=== PATIENT | male | born 1995 | race Caucasian/White ===

== ENCOUNTER 2021-03-02 20:01 | Emergency (ER) | payer SELFPAY ==
[~2021-03-02] VITALS: Ht 172.7 cm; Wt 54.4 kg
[2021-03-02 20:47] LABS: Anion Gap 17 mmol/L (6-16); Blood Urea Nitrogen 6 mg/dL (8-24); Bun/Creatinine Ratio 6.4 (12.0-20.0); CO2, Blood 18 mmol/L (21-32); Calcium, Blood 9.3 mg/dL (8.5-10.1); Chloride, Blood 100 mmol/L (98-108); Creatinine, Blood 0.94 mg/dL (0.60-1.20); Glomerular Filtration Rate >60 (60-); Glucose, Blood 110 mg/dL (70-99); Potassium, Blood 3.1 mmol/L (3.5-5.5); Sodium, Blood 135 mmol/L (136-145)
== END 2021-03-02 20:58 | disposition home or self-care (01) ==
LOC: ER 20:01
PROVIDERS: Emergency Medicine
DX: R56.9 Unspecified convulsions (principal); F15.90 Other stimulant use, unspecified, uncomplicated; M62.422 Contracture of muscle, left upper arm; M62.421 Contracture of muscle, right upper arm; F17.200 Nicotine dependence, unspecified, uncomplicated
CPT/HCPCS: 80048; 93005; 93010; 99285-25

== ENCOUNTER 2021-03-02 23:13 | Emergency (ER) | payer SELFPAY ==
[~2021-03-02] VITALS: Ht 172.7 cm; Wt 54.4 kg
== END 2021-03-03 00:40 | disposition home or self-care (01) ==
LOC: ER 23:13
DX: R07.81 Pleurodynia (principal); E87.6 Hypokalemia; F17.200 Nicotine dependence, unspecified, uncomplicated
CPT/HCPCS: 71100; 96372; 99283-25; A9270; J1885

== ENCOUNTER 2021-03-03 17:40 | Inpatient (IN) | payer SELFPAY ==
[~2021-03-03] VITALS: Ht 172.7 cm; Wt 54.4 kg
[2021-03-03 19:04] LABS: BASOPHILS ABSOLUTE AUTO 0.06 K/mm3 (0.00-0.23); BASOPHILS PERCENT AUTO 1 % (0-2); EOSINOPHILS ABSOLUTE AUTO 0.04 K/mm3 (0.00-0.68); EOSINOPHILS PERCENT AUTO 1 % (0-6); Hemoglobin 15.8 g/dL (13.5-17.5); IMMATURE GRAN ABSOLUTE AUTO 0.01 K/mm3 (0.00-0.10); IMMATURE GRAN PERCENT AUTO 0 % (0-1); LYMPHOCYTES ABSOLUTE AUTO 2.29 K/mm3 (0.84-5.20); LYMPHOCYTES PERCENT AUTO 27 % (21-46); MONOCYTES ABSOLUTE AUTO 0.82 K/mm3 (0.16-1.47); MONOCYTES PERCENT AUTO 10 % (4-13); Mean Corpuscular HGB 30.6 pg (26.0-34.0); Mean Corpuscular HGB Conc 35.1 g/dL (31.5-36.5); Mean Corpuscular Volume 87 fL (80-100); NEUTROPHILS ABSOLUTE AUTO 5.31 K/mm3 (1.96-9.15); NEUTROPHILS PERCENT AUTO 62 % (41-73); Platelet Count 330 K/mm3 (150-400); RDW Coefficient Variation 13.1 % (11.7-14.2); RDW Standard Deviation 41.5 fL (35.1-46.3); Red Blood Cell Count 5.16 M/mm3 (4.30-5.90); White Blood Cell Count 8.53 K/mm3 (4.00-11.30)
[2021-03-03 19:25] LABS: Alanine Aminotransfer (ALT/SGP 27 U/L (12-78); Albumin, Blood 4.3 g/dL (3.4-5.0); Albumin/Globulin Ratio 1.2 (0.8-1.8); Alk Phos 61 U/L (50-136); Anion Gap 8 mmol/L (6-16); Aspartate Aminotrans (AST/SGOT 32 U/L (12-37); Bilirubin, Total 2.7 mg/dL (0.1-1.0); Blood Urea Nitrogen 20 mg/dL (8-24); Bun/Creatinine Ratio 18.2 (12.0-20.0); CO2, Blood 22 mmol/L (21-32); Chloride, Blood 107 mmol/L (98-108); Ethanol (Alcohol), Blood, Med <3 mg/dL; Free Thyroxine 1.69 ng/dL (0.70-1.60); Globulin, Blood 3.6 g/dL (2.2-4.0); Glomerular Filtration Rate >60 (60-); Glucose, Blood 118 mg/dL (70-99); Potassium, Blood 3.6 mmol/L (3.5-5.5); Salicylate 2.7 mg/dL (2.8-20.0); Sodium, Blood 137 mmol/L (136-145); Total Protein, Blood 7.9 g/dL (6.4-8.2)
[2021-03-03 19:26] LABS: Acetaminophen, Random <2.0 ug/mL (10.0-30.0)
[2021-03-03 20:08] LABS: SARS-Cov-2 (COVID-19) PCR, MMC POSITIVE (NEGATIVE)
[2021-03-03 20:13] LABS: U Amphetamine Screen DETECTED; U Barbituate Screen Not Detected; U Benzodiazapine Screen Not Detected; U Buprenorphine Screen Not Detected; U Cannabinoids Screen DETECTED; U Cocaine Screen Not Detected; U Methadone Screen Not Detected; U Methamphetamine Screen DETECTED; U Opiates Screen Not Detected; U Oxycodone Screen Not Detected; U Phencyclidine Screen Not Detected; U Propoxyphene Screen Not Detected
[2021-03-04 05:08] LABS: BASOPHILS ABSOLUTE AUTO 0.06 K/mm3 (0.00-0.23); BASOPHILS PERCENT AUTO 1 % (0-2); EOSINOPHILS ABSOLUTE AUTO 0.09 K/mm3 (0.00-0.68); EOSINOPHILS PERCENT AUTO 1 % (0-6); Hematocrit 40.6 % (37.0-53.0); IMMATURE GRAN ABSOLUTE AUTO 0.01 K/mm3 (0.00-0.10); IMMATURE GRAN PERCENT AUTO 0 % (0-1); LYMPHOCYTES ABSOLUTE AUTO 3.17 K/mm3 (0.84-5.20); LYMPHOCYTES PERCENT AUTO 41 % (21-46); MONOCYTES ABSOLUTE AUTO 0.59 K/mm3 (0.16-1.47); MONOCYTES PERCENT AUTO 8 % (4-13); Mean Corpuscular HGB 30.9 pg (26.0-34.0); Mean Corpuscular HGB Conc 34.5 g/dL (31.5-36.5); Mean Corpuscular Volume 90 fL (80-100); Mean Platelet Volume 9.1 fL (9.1-12.4); NEUTROPHILS ABSOLUTE AUTO 3.91 K/mm3 (1.96-9.15); NEUTROPHILS PERCENT AUTO 50 % (41-73); Platelet Count 247 K/mm3 (150-400); RDW Coefficient Variation 13.2 % (11.7-14.2); RDW Standard Deviation 43.7 fL (35.1-46.3); Red Blood Cell Count 4.53 M/mm3 (4.30-5.90); White Blood Cell Count 7.83 K/mm3 (4.00-11.30)
[2021-03-04 05:34] LABS: Alanine Aminotransfer (ALT/SGP 23 U/L (12-78); Albumin, Blood 3.9 g/dL (3.4-5.0); Albumin/Globulin Ratio 1.5 (0.8-1.8); Alk Phos 50 U/L (50-136); Anion Gap 5 mmol/L (6-16); Aspartate Aminotrans (AST/SGOT 22 U/L (12-37); Bilirubin, Total 1.9 mg/dL (0.1-1.0); Blood Urea Nitrogen 10 mg/dL (8-24); Bun/Creatinine Ratio 12.2 (12.0-20.0); CO2, Blood 23 mmol/L (21-32); Calcium, Blood 7.9 mg/dL (8.5-10.1); Chloride, Blood 114 mmol/L (98-108); Creatinine, Blood 0.82 mg/dL (0.60-1.20); Globulin, Blood 2.6 g/dL (2.2-4.0); Glomerular Filtration Rate >60 (60-); Glucose, Blood 70 mg/dL (70-99); Potassium, Blood 3.9 mmol/L (3.5-5.5); Sodium, Blood 142 mmol/L (136-145); Total Protein, Blood 6.5 g/dL (6.4-8.2)
--- NOTE | 2021-03-04 15:20 | NUR ---
TELE BOX VERIFIED WITH MUSA CHAPARRO
--- NOTE | 2021-03-04 15:20 | NUR ---
PT ARRIVED TO THE ROOM AT APPROXIMATELY 1500. PT IS RESTING BUT AWAKENS WHEN SPOKEN TO. HE RESPONDS APPROPRIATELY TO SOME QUESTIONS. PRECEDEX DRIP AT 0.2MCG/KG/HR.
--- NOTE | 2021-03-04 16:52 | NUR ---
SHIFT SUMMARY PT ARRIVED TO THE ROOM AT APPROXIMATELY 1500. PT SLEEPING BUT AWAKENS WHEN SPOKEN TO. PT REMAINS ORIENTED TO HIMSELF BUT UNABLE TO ANSWER OTHER QUESTIONS. NO CHANGES TO REPORT SINCE PT ARRIVED TO THE ROOM.
--- NOTE | 2021-03-04 20:35 | NUR ---
2030 PT AOX4. FOLLOWING COMMANDS. PT PRECEDEX PUT ON STANDBY AND WILL CONTINUE TO MONITOR PT. DAVIS MARTINEZ CONSULTED AND AGREED.
--- NOTE | 2021-03-04 20:42 | NUR ---
2041 PT BEGAN TO BECOME VERY ANXIOUS. PRECEDEX RESUMED.
--- NOTE | 2021-03-04 22:46 | NUR ---
2245 MIGEL FROM [facility] CALLED FOR UPDATE ON PT. HE RECOMMENDED PT HAVE A FOLLOW UP EKG IN THE MORNING.
--- NOTE | 2021-03-04 23:12 | NUR ---
@ 2230 camera monitor called automatic grinding machine operator to alert that pt was messing w/iv and tele box, automatic grinding machine operator entered rm and founf pt trying to change tv channel w /tele box. I explained what the tele box was and changed the channel for pt automatic grinding machine operator could not give remote to pt bc he is SI.
--- NOTE | 2021-03-05 04:24 | NUR ---
SUMMARY PT HAD UNEVENTFUL SHIFT. ATTEMPT TO STOP PRECEDEX WAS DONE W/ OUT SUCCESS. PT REPORTED SEVERE ANXIETY AND AGITATION. PRECEDX WAS RESTARTED. PT HAS WATCHED TV AND SLEPT WELL. PT HAS BEEN COOPERATIVE AND ANSWERS QUESTIONS APPROPIATELY. PT REPORTS NOT REMEMBERING EVENTS PRIOR TO THIS EVENING. PT CURRENTLY SLEEPING IN NO DISTRESS. CALL LIGHT IN REACH AND BED ALARM ON.
--- NOTE | 2021-03-05 07:15 | NUR ---
CARE ASSUMPTION PATIENT IS A/O X4. ANSWERS QUESTIONS APPROPRIATELY. FLAT AFFECT. VSS. SPO2 >95% ON RA. TELE SR 68. CONFIRMED CAMERA IS ON WITH CAMERA MONITOR. BED IN LOWEST POSITION WITH ALARM ON. SI PRECAUTIONS IN PLACE. WILL CONTINUE TO MONITOR AND PROVIDE CARE.
[2021-03-05] MEDS ORDERED: Seroquel Xr50 MG PO (17:35)
--- NOTE | 2021-03-05 17:57 | NUR ---
SHIFT SUMMARY PATIENT A/OX4. PATIENT IS ANXIOUS AT TIMES. VSS. SPO2 >90% ON RA. TELE SR 70S. NO PAIN, CHEST PAIN, OR SHORTNESS OF BREATH. PATIENT REPORTS NO SUCIDIAL IDEATION. MD GAXIOLA INTO SEE PATIENT AND STATED THAT PATIENT CAN BE DISCHARGED. MD FUENTES NOTIFED AND PUT DISCHARGE PAPERS IN. PRECEDEX STOPPED. PATIENT CALL LIGHT WITHIN REACH AND BED IN LOWEST POSITION. NO ACUTE CHANGES. WILL CONTINUE TO MONITOR AND PROVIDE CARE UNTIL HAND OFF WITH NEXT SHIFT.
--- NOTE | 2021-03-05 20:23 | NUR ---
DISCHARGE SUMMARY PT REPORTED HIS RIDE WAS HERE, IV ACCESS REMOVED AND NO OTHER IV ACCESS NOTED, TELEMETRY NOTIFIED AND BOX WAS DISCONNECTED, PT WAS GIVEN HIS PERSONAL POSSESSIONS AND GIVEN TIME TO CHANGE, VITALS TAKEN BEFORE GOING OVER DISCHARGE INSTRUCTIONS WHICH WERE STABLE AT TIME OF DEPARTURE, DISCHARGE INSTRUCTIONS GIVEN, PRESCRIPTION GIVEN, ALL QUESTIONS ANSWERED TO PATIENTS SATISFACTION. PT ESCORTED TO [facility] WHERE HE MET WITH HIS RIDE TO GO HOME. ROOM CHECKED, NO PERSONAL ITEMS LEFT.
== END 2021-03-05 20:10 | disposition home or self-care (01) | DRG 917 ==
LOC: ER 17:40 → SURS 17:41 → EOR 17:41 → SURS 17:41
PROVIDERS: Internal Medicine; ADMIT Student in an Organized Health Care Education/Training Program
PROC: 8E0ZXY6 Isolation (ICD-10-PCS; principal; 2021-03-05)
DX: T45.0X2A Poisoning by antiallergic and antiemetic drugs, intentional self-harm, initial encounter (principal); U07.1 COVID-19; G92 Toxic encephalopathy; F15.20 Other stimulant dependence, uncomplicated; M62.82 Rhabdomyolysis; F20.9 Schizophrenia, unspecified; E86.0 Dehydration; F12.10 Cannabis abuse, uncomplicated
CPT/HCPCS: 51701; 71045; 80053; 82550; 84439; 84443; 85025; 93005; 93010; 94762; 96361; 96372; 96374; 99285-25; G0378; G0480; J1650; J2060; J7030; J7050; U0004